=== PATIENT | female | born 1965 | race Hispanic/Latino ===

== ENCOUNTER 2019-05-31 04:57 | Emergency (ER) | payer SELFPAY ==
[2019-05-31 05:15] VITALS: BP 139/95
--- NOTE | 2019-05-31 05:52 | XRay Report ---
LEFT FOOT 3 VIEWS INDICATION / CLINICAL INFORMATION: pain and swelling L foot COMPARISON: None available. FINDINGS: BONES / JOINT(S): There are fractures of the proximal phalanges of the fourth and fifth toes which ar e mildly angulated. There is mild degenerative change in the great toe MTP joint SOFT TISSUES: There is soft tissue swelling ADDITIONAL FINDINGS: None. Signer Name: Xiang Jay MD Signed: 05/31/2019 5:47 AM Workstation Name: [id number]
[2019-05-31] MEDS ORDERED: HYDROcodone/ACETAMINOPHEN 5-325 MG TAB PO ONE (06:01)
--- NOTE | 2019-05-31 06:06 | Emergency Department Report ---
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 States she kicked a dresser by accident last night. There was initial pain and deformity and her boyfriend straighten her toes back out. Patient is partially ambulatory with some pain. Pain is rated at 5/10. There is no foot swelling there is no numbness. There is some toe tingling but no deformity at this time. Pain is exacerbated by palpation and movement. Pain is relieved by nothing tried MD Complaint: foot injury (left 4th and 5th toe pain ) Onset/Timin -: hour(s) Injury: Foot: Left Type of Injury: blunt Place: home Severity: moderate Severity scale (0 -10): 4 Improves With: nothing Worsens With: movement, palpation Context: direct blow (kicked dresser) Associated Symptoms: snap/pop sensation, tingling, able to partially bear weight - Related Data Previous Rx's Medication Instructions Recorded Last Taken Type HYDROcodone/APAP 5-325 [[place] 1 each PO Q6HR PRN #12 tablet 05/31/19 Unknown Rx 5-325 mg TAB] Allergies Allergy/AdvReac Type Severity Reaction Status Date / Time ciprofloxacin [From Cipro] Allergy Rash Verified 05/31/19 05:08 ED Review of Systems ROS: Stated complaint: TOE INJURY Other details as noted in HPI Constitutional: denies: chills, fever Eyes: denies: eye pain, eye discharge, vision change ENT: denies: ear pain, throat pain Respiratory: denies: cough, shortness of breath, wheezing Cardiovascular: denies: chest pain, palpitations Endocrine: no symptoms reported Gastrointestinal: denies: abdominal pain, nausea, diarrhea Genitourinary: denies: urgency, dysuria, discharge Musculoskeletal: denies: back pain, joint swelling, arthralgia Skin: denies: rash, lesions Neurological: denies: headache, weakness, paresthesias Psychiatric: denies: anxiety, depression Hematological/Lymphatic: denies: easy bleeding, easy bruising ED Past Medical Hx - Surgical History Past Surgical History?: No - Social History Smoking Status: Current Every Day Smoker Substance Use Type: Alcohol - Medications Home Medications: Home Medications Medication Instructions Recorded Confirmed Last Taken Type HYDROcodone/APAP 5-325 [[place] 1 each PO Q6HR PRN #12 tablet 05/31/19 Unknown Rx 5-325 mg TAB] ED Physical Exam - General Limitations: No Limitations General appearance: alert, in no apparent distress - Head Head exam: Present: atraumatic, normocephalic - Eye Eye exam: Present: normal appearance, PERRL, EOMI Pupils: Present: normal accommodation - ENT ENT exam: Present: mucous membranes moist - Neck Neck exam: Present: normal inspection, full ROM. Absent: tenderness - Respiratory Respiratory exam: Present: normal lung sounds bilaterally. Absent: wheezes, rhonchi - Cardiovascular Cardiovascular Exam: Present: regular rate, normal rhythm, normal heart sounds. Absent: systolic murmur, diastolic murmur, rubs, gallop - GI/Abdominal GI/Abdominal exam: Present: soft, normal bowel sounds. Absent: tenderness - Rectal Rectal exam: Present: deferred - Extremities Exam Extremities exam: Present: tenderness (left toes 4&5 digits ) - Back Exam Back exam: Present: normal inspection, full ROM. Absent: tenderness - Neurological Exam Neurological exam: Present: alert, oriented X3, CN II-XII intact - Psychiatric Psychiatric exam: Present: normal affect, normal mood - Skin Skin exam: Present: warm, dry, intact, normal color. Absent: rash ED Course Vital Signs 05/31/19 05:08 Temperature 98.5 F Pulse Rate 77 Respiratory 18 Rate Blood Pressure 139/95 O2 Sat by Pulse 94 Oximetry ED Lower Extremity MDM - Radiology Data Radiology results: report reviewed, image reviewed Findings [facility] [address] [place] [address] XRay Report Signed Patient: LAYLA MARSH MR#: [id number] : 1965 Acct:[id number] Age/Sex: 53 / F ADM Date: 05/31/19 Loc: ED Attending Dr: Ordering Physician: MARY ELLEN MCDONALD MD Date of Service: 05/31/19 Procedure(s): XR foot 3+V LT Accession Number(s): [id number] cc: MARY ELLEN MCDONALD MD Fluoro Time In Minutes: LEFT FOOT 3 VIEWS INDICATION / CLINICAL INFORMATION: pain and swelling L foot COMPARISON: None available. FINDINGS: BONES / JOINT(S): There are fractures of the proximal phalanges of the fourth and fifth toes which are mildly angulated. There is mild degenerative change in the great toe MTP joint SOFT TISSUES: There is soft tissue swelling ADDITIONAL FINDINGS: None. Signer Name: Xiang Jay MD Signed: 05/31/2019 5:47 AM Workstation Name: [id number] Transcribed By: SS Dictated By: Xiang Jay MD Electronically Authenticated By: Xiang Jay MD Signed Date/Time: 05/31/19546 DD/ 5 TD/TT: - Medical Decision Making X-ray confirms left fourth and fifth toe fractures mild displacement, toes reduced with direct traction .Postop shoe applied pain is improved with hydrocodone will DC to home with hydrocodone patient will follow-up with orthopedics in 2 to 3 days. Critical care attestation.: If time is entered above; I have spent that time in minutes in the direct care of this critically ill patient, excluding procedure time. ED Disposition Clinical Impression: Toe fracture, left Qualifiers: Encounter type: initial encounter Toe: lesser toe Fracture type: closed Phalanx: distal Fracture alignment: displaced Qualified Code(s): S92.532A - Displaced fracture of distal phalanx of left lesser toe(s), initial encounter for closed fracture Disposition: DC-01 TO HOME OR SELFCARE Is pt being admited?: No Does the pt Need Aspirin: No Condition: Stable Instructions: Toe Fracture (ED) Prescriptions: HYDROcodone/APAP 5-325 [[place] 5-325 mg TAB] 1 each PO Q6HR PRN #12 tablet PRN Reason: Pain Referrals: MARC TANG MD [Staff Physician] - 3-5 Days Forms: Work/School Release Form(ED) Time of Disposition: 06:10
== END 2019-05-31 06:36 | disposition home or self-care (01) ==
LOC: ED 04:57
DX: S92.532A Displaced fracture of distal phalanx of left lesser toe(s), initial encounter for closed fracture (principal); F17.200 Nicotine dependence, unspecified, uncomplicated; Z88.1 Allergy status to other antibiotic agents; X58.XXXA Exposure to other specified factors, initial encounter; Y93.89 Activity, other specified; Y92.89 Other specified places as the place of occurrence of the external cause; Y99.8 Other external cause status